=== PATIENT | male | born 1975 | race African-American/Black ===

== ENCOUNTER 2020-11-21 22:32 | Emergency (ER) | payer OTHER ==
[~2020-11-21] VITALS: Ht 177.8 cm; Wt 88.5 kg
[2020-11-21] MEDS ORDERED: NORVASC 2.5 MG2.5 M1 PO (22:43)
[2020-11-21] MEDS ORDERED: HYDROCHLOROTH12.5 M2 PO (22:44)
[2020-11-21 23:06] LABS: ABSOLUTE NEUTROPHILS 3.2 thou/uL (1.4-8.2); BASOPHILS 0.9 % (0.0-2.0); EOSINOPHILS 2.6 % (0.0-3.0); HEMATOCRIT 39.6 % (42.0-52.0); HEMOGLOBIN 13.3 gm/dL (14.0-18.0); LYMPHOCYTES 46.3 % (24.0-44.0); MCH 28.7 pg (26.0-34.0); MCHC 33.5 g/dL (28.0-37.0); MCV 85.6 fL (80.0-100.0); MONOCYTES 10.2 % (1.0-8.0); PLATELET COUNT 239 thou/uL (150-400); RBC 4.63 mil/uL (4.50-6.00); RDW 14.6 % (10.5-14.5)
[2020-11-21 23:26] LABS: ANION GAP 9 mmol/L (7-16); BUN 10 mg/dL (7-18); CALCIUM 8.7 mg/dL (8.5-10.1); CHLORIDE 107 mmol/L (98-107); CO2 26 mmol/L (21-32); GLUCOSE 106 mg/dL (74-106); POTASSIUM 3.8 mmol/L (3.5-5.1); SODIUM 142 mmol/L (136-145)
[2020-11-21 23:35] LABS: ALBUMIN 3.8 g/dL (3.4-5.0); DIRECT BILIRUBIN < 0.1 mg/dL (<0.1-0.2); SGOT 17 U/L (15-37); SGPT 24 U/L (30-65); TOTAL BILIRUBIN 0.3 mg/dL (0.2-1.0); TOTAL PROTEIN 7.3 g/dL (6.4-8.2); TROPONIN-I <0.06 ng/mL (<0.06)
[2020-11-22] MEDS ORDERED: ATIVAN0.5 M1 PO (01:30)
[2020-11-22] MEDS ORDERED: PREDNISONE 20 M20 MG PO (01:30)
[2020-11-22 01:53] VITALS: BP 169/85
--- NOTE | 2020-11-22 07:14 | EKG ---
[address] [address] ELECTROCARDIOGRAM REPORT Name: ELEANORCONSUELO Room #: [id number] Admission: 11/21/20 Attend Phys: Discharge: 11/22/20 Date of : 75 Report #: [id number] [facility] ED Test Date: 2020-11-21 Test Time: 23:00:58 Pat Name: CONSUELO WEBSTER Department: Room: Gender: Environmental Aide: lew : 1975 Requested By: Louie Marin Order Number: [id number] MD: Duy Doyle Measurements Intervals [place] Rate: 60 P: 12 WI: 164 QRS: 13 QRSD: 98 T: 19 QT: 420 QTc: 420 Interpretive Statements Sinus rhythm Left ventricular hypertrophy No previous ECG available for comparison Electronically Signed On 11-22-2020 7:14:44 CDT by Duy Doyle [email or web address] <ELECTRONICALLY SIGNED> By: Duy Doyle MD, [facility] 11/22/20 0714 2300 2300 Duy Doyle MD, FACC /EPI
== END 2020-11-22 01:54 | disposition home or self-care (01) ==
LOC: ER 22:32
PROVIDERS: Emergency Medicine
DX: R09.89 Other specified symptoms and signs involving the circulatory and respiratory systems (principal); Z20.822 Contact with and (suspected) exposure to COVID-19; I10 Essential (primary) hypertension; F12.90 Cannabis use, unspecified, uncomplicated; Z79.899 Other long term (current) drug therapy

== ENCOUNTER 2020-12-26 08:18 | Emergency (ER) | payer OTHER ==
[~2020-12-26] VITALS: Ht 175.3 cm; Wt 86.2 kg
[~2020-12-26 08:18] MED LIST: ATIVAN0.5 M1 PO; HYDROCHLOROTH12.5 M2 PO; NORVASC 2.5 MG2.5 M1 PO; PREDNISONE 20 M20 MG PO
[2020-12-26] MEDS ORDERED: OMEPRAZOLE40 MG PO (08:53)
[2020-12-26 09:02] LABS: ABSOLUTE NEUTROPHILS 9.1 thou/uL (1.4-8.2); BASOPHILS 0.4 % (0.0-2.0); HEMATOCRIT 43.3 % (42.0-52.0); HEMOGLOBIN 14.3 gm/dL (14.0-18.0); LYMPHOCYTES 9.6 % (24.0-44.0); MCH 28.2 pg (26.0-34.0); MCHC 32.9 g/dL (28.0-37.0); MCV 85.6 fL (80.0-100.0); PLATELET COUNT 327 thou/uL (150-400); RBC 5.06 mil/uL (4.50-6.00); RDW 15.1 % (10.5-14.5); WBC 10.5 thou/uL (4.0-11.0)
[2020-12-26 09:09] LABS: URINE BILIRUBIN NEGATIVE (Negative); URINE BLOOD 2+ (Negative); URINE CLARITY CLEAR; URINE COLOR YELLOW; URINE GLUCOSE-RANDOM* NEGATIVE (Negative); URINE KETONES NEGATIVE (Negative); URINE LEUKOCYTES-REFLEX NEGATIVE (Negative); URINE NITRITE-REFLEX NEGATIVE (Negative); URINE PROTEIN (DIPSTICK) 1+ (Negative); URINE SPECIFIC GRAVITY >= 1.030 (1.005-1.035); URINE UROBILINOGEN 0.2 E.U./dl (0.2-1.0)
[2020-12-26 09:10] LABS: CALCIUM 9.5 mg/dL (8.5-10.1); CREATININE 1.1 mg/dL (0.7-1.3); POTASSIUM 3.7 mmol/L (3.5-5.1)
[2020-12-26 09:15] LABS: BACTERIA-REFLEX None Seen /HPF (None Seen); CRYSTALS None Seen /LPF (None Seen); SQUAMOUS 4-10 Moderate /LPF (0-3); URINE RBC 1-2 Rare /HPF (NONE SEEN); URINE WBC-REFLEX None Seen /HPF (0-5)
[2020-12-26 09:16] LABS: ALBUMIN 4.2 g/dL (3.4-5.0); TOTAL BILIRUBIN 0.2 mg/dL (0.2-1.0); TOTAL PROTEIN 8.2 g/dL (6.4-8.2)
[2020-12-26 09:16] LABS: MUCUS >6 Heavy strn/LPF (None Seen)
[2020-12-26 09:24] LABS: AMYLASE 73 U/L (25-115); LIPASE 87 U/L (73-393)
[2020-12-26 12:31] VITALS: BP 143/86
== END 2020-12-26 12:41 | disposition home or self-care (01) ==
LOC: ER 08:18
PROVIDERS: Emergency Medicine
DX: R10.814 Left lower quadrant abdominal tenderness (principal); R11.2 Nausea with vomiting, unspecified; I10 Essential (primary) hypertension